=== PATIENT | female | born 1940 | race Caucasian/White ===

== ENCOUNTER 2017-06-20 10:05 | Day surgery (SDC) | payer MEDICARE, BC ==
[~2017-06-20] VITALS: Ht 175.3 cm; Wt 103.4 kg
[2017-06-20 10:45] VITALS: BP 144/72
[2017-06-20] MEDS ORDERED: sodium bicarbonate (8.4%) inj. 150 MEQ in dextrose 5%-water 1,000 ML IV SCH (10:45)
[2017-06-20] MEDS ORDERED: CALC-159 PO ×2 (11:13)
[2017-06-20] MEDS ORDERED: NATURE S BOUNTY PO (11:13)
[2017-06-20] MEDS ORDERED: VITC500T PO (11:13)
[2017-06-20] MEDS ORDERED: IBUP-1984 PO (11:13)
[2017-06-20] MEDS ORDERED: ASPI-1264 PO (11:13)
[2017-06-20] MEDS ORDERED: ACET325C PO (11:13)
[2017-06-20] MEDS ORDERED: PANT-47 PO (11:13)
[2017-06-20] MEDS ORDERED: DOCU-28 PO (11:13)
[2017-06-20] MEDS ORDERED: EZET1TAB69 PO (11:13)
[2017-06-20] MEDS ORDERED: CALC-437 PO (11:13)
[2017-06-20] MEDS ORDERED: DILT240C94 PO (11:13)
[2017-06-20] MEDS ORDERED: iohexol 350MG/ML 100ml bottle IV ONE (12:57)
[2017-06-20] MEDS ORDERED: iohexol 350 MG/ML 50ML vial IV ONE (12:57)
[2017-06-20 16:30] VITALS: BP 135/75
== END 2017-06-20 16:30 | disposition home or self-care (01) ==
LOC: SSTAY O 10:05
PROVIDERS: ATTEND Surgery
DX: I71.4 Abdominal aortic aneurysm, without rupture (principal); Z88.0 Allergy status to penicillin; Z88.1 Allergy status to other antibiotic agents
CPT/HCPCS: 75635; J7030; Q9967